=== PATIENT | female | born 1955 | race Two or more races ===

== ENCOUNTER 2021-01-13 13:37 | Outpatient (CLI) | payer OTHER ==
[~2021-01-13] VITALS: Ht 149.9 cm; Wt 54.4 kg
[2021-01-13 13:56] VITALS: BP 111/60
--- NOTE | 2021-01-13 19:14 | Consultation ---
DATE OF CONSULTATION: 01/13/2021 GASTROENTEROLOGY CONSULTATION CONSULTING PHYSICIAN: Figueroa Horn MD. CHIEF COMPLAINT: Referral for GERD, bloating. PAST MEDICAL HISTORY: History of depression, hypertension, GERD, sciatica, celiac disease, osteopenia. PAST SURGICAL HISTORY: Appendectomy, tonsillectomy, hysterectomy. MEDICATIONS: Please see medication reconciliation list. FAMILY HISTORY: Brother had melanoma. SOCIAL HISTORY: The patient denies any tobacco, alcohol, or drug abuse. ALLERGIES: To sulfa. REVIEW OF SYSTEMS: Positive for GERD and significant bloating. PHYSICAL EXAMINATION: VITAL SIGNS: Temperature 96.9, blood pressure 111/60, pulse 70, respirations 20. HEENT: Normocephalic and atraumatic. Sclerae are anicteric. NECK: Supple. No evidence of obvious lymphadenopathy. CARDIOVASCULAR: Regular rate and rhythm. Plus S1-S2. LUNGS: Clear to auscultation bilaterally. ABDOMEN: Positive bowel sounds. Soft and nontender. No rebound. No guarding. No peritoneal sign. EXTREMITIES: No cyanosis, no clubbing, no edema. ASSESSMENT AND PLAN: 1. Mild constipation. We will try 17 g of MiraLAX daily. 2. Chronic GERD symptoms not responding to PPI, Prilosec. Plan to perform endoscopy, also endoscopy for followup on celiac disease. 3. SIBO. A trial of Xifaxan 550 mg p.o. t.i.d. for 14 days. Figueroa Horn M.D. DR: JAKE JOB#: [id number] CC:
[2021-01-15] MEDS ORDERED: PRILOSEC OTC20 MG ORAL (07:33)
[2021-01-15] MEDS ORDERED: GABAPENTIN100 MG ORAL (07:33)
[2021-01-15] MEDS ORDERED: LEXAPRO10 MG ORAL (07:33)
[2021-01-15] MEDS ORDERED: ATENOLOL25 MG ORAL (07:33)
== END 2021-01-13 14:57 | disposition home or self-care (01) ==
LOC: PAN 13:37
DX: K21.9 Gastro-esophageal reflux disease without esophagitis (principal); R14.0 Abdominal distension (gaseous); F32.9 Major depressive disorder, single episode, unspecified; I10 Essential (primary) hypertension; M85.80 Other specified disorders of bone density and structure, unspecified site; K90.0 Celiac disease; Z90.89 Acquired absence of other organs; Z90.710 Acquired absence of both cervix and uterus; K59.09 Other constipation; K56.609 Unspecified intestinal obstruction, unspecified as to partial versus complete obstruction
CPT/HCPCS: 99203